=== PATIENT | female | born 1945 | race Caucasian/White ===

== ENCOUNTER 2016-10-02 11:20 | Emergency (ER) | payer OTHER, MEDICARE ==
[~2016-10-02] VITALS: Ht 167.6 cm; Wt 64.9 kg
[2016-10-02 13:20] LABS: EOSINOPHIL (%) 0.6 % (0-5); HEMATOCRIT 42.2 % (36.0-46.0); IMMATURE GRANULOCYTE (%) 0.3 % (0.0-0.7); INSTRUMENT ABS NEUTROPHIL CT 5.2 K/uL; MCH 28.6 PG (29.0-34.0); MCHC 32.5 G/DL (30.0-36.0); MCV 88.1 FL (83-99); MONOCYTE (%) 8.1 % (3-12); MONOCYTE COUNT 0.6 K/uL (0-0.8); NEUTROPHIL (%) 76.2 % (45-76); NEUTROPHIL COUNT 5.2 K/uL (1.8-6.4); PLATELET COUNT 349 K/uL (156-360); RBC DIS.WIDTH-CV 12.5 % (11.8-14.6); RBC DIS.WIDTH-SD 40.1 % (39-53); RED BLOOD COUNT 4.79 M/uL (3.80-5.20); WHITE BLOOD COUNT 6.8 K/uL (4.1-10.2)
[2016-10-02 13:32] LABS: CHLORIDE 90 mEq/L (99-109); POTASSIUM 2.8 mEq/L (3.7-5.4); SODIUM 139 mEq/L (136-147)
[2016-10-02 13:33] LABS: GLUCOSE 97 mg/dL (70-99)
[2016-10-02 13:35] LABS: ANION GAP 20 MEQ/L (2-14)
[2016-10-02 13:37] LABS: GFR ESTIMATE (CALCULATED) > 59 mL/min/
[2016-10-02 13:38] LABS: UREA NITROGEN (BUN) 23 mg/dL (9-23)
[2016-10-02] MEDS ORDERED: K-DUR20 MEQ PO (16:14)
[2016-10-02 16:52] VITALS: BP 134/83
== END 2016-10-02 17:00 | disposition home or self-care (01) ==
LOC: EME 11:20
PROVIDERS: Emergency Medicine
DX: H54.62 Unqualified visual loss, left eye, normal vision right eye (principal); E87.6 Hypokalemia; Z87.891 Personal history of nicotine dependence
CPT/HCPCS: 70450; 80048; 85025; 99281; 99284

== ENCOUNTER 2016-11-18 01:42 | Emergency (ER) | payer OTHER, MEDICARE ==
[~2016-11-18] VITALS: Ht 172.7 cm; Wt 63.5 kg
[~2016-11-18 01:42] MED LIST: K-DUR20 MEQ PO
[2016-11-18 02:40] LABS: HEMATOCRIT 50.7 % (36.0-46.0); MCH 29.8 PG (29.0-34.0); MCHC 32.3 G/DL (30.0-36.0); MCV 92.2 FL (83-99); NRBC (%) 0.2 /100 WBC (0-0); PLATELET COUNT 186 K/uL (156-360); WHITE BLOOD COUNT 9.2 K/uL (4.1-10.2)
[2016-11-18 02:49] LABS: CHLORIDE 108 mEq/L (99-109); POTASSIUM 4.2 mEq/L (3.7-5.4); SODIUM 142 mEq/L (136-147)
[2016-11-18 02:51] LABS: GLUCOSE 128 mg/dL (70-99)
[2016-11-18 02:53] LABS: ANION GAP 9 MEQ/L (2-14); TOTAL BILIRUBIN 0.5 mg/dL (0.0-1.0)
[2016-11-18 02:55] LABS: ALKALINE PHOSPHATASE 109 IU/L (3-129); GFR ESTIMATE (CALCULATED) > 59 mL/min/
[2016-11-18 02:56] LABS: UREA NITROGEN (BUN) 21 mg/dL (9-23)
[2016-11-18 02:57] LABS: DIRECT BILIRUBIN 0.2 mg/dL (0.0-0.3)
[2016-11-18 02:58] LABS: LIPASE 10 U/L (1.0-51.0)
[2016-11-18 03:05] LABS: TROP-I INTERPRETATION NEGATIVE; TROPONIN-I 0.03 ng/mL (0.0-0.30)
[2016-11-18 06:12] VITALS: BP 102/71
== END 2016-11-18 07:23 | disposition short-term general hospital (02) ==
LOC: EME 01:42
PROVIDERS: Emergency Medicine
DX: R07.9 Chest pain, unspecified (principal); R50.9 Fever, unspecified; R74.0 Nonspecific elevation of levels of transaminase and lactic acid dehydrogenase [LDH]; F17.200 Nicotine dependence, unspecified, uncomplicated; I77.6 Arteritis, unspecified; H54.42 Blindness, left eye, normal vision right eye; E03.9 Hypothyroidism, unspecified
CPT/HCPCS: 71010; 74176; 80048; 80076; 83605; 83690; 84484; 85027; 87040; 99281; 99285; J1100; J1450; J1885; J2543